=== PATIENT | female | born 1995 | race Two or more races ===

== ENCOUNTER 2020-12-14 12:07 | Emergency (ER) | payer SELFPAY ==
[2020-12-14] MEDS ORDERED: Sodium Chloride 0.9% 10 ML Syringe FLUSH PRN (12:22)
[2020-12-14] MEDS ORDERED: Sodium Chloride 0.9% 2.5 ML Syringe FLUSH PRN (12:22)
[2020-12-14] MEDS ORDERED: LORazepam 2 MG/ML SDV IVPUSH ONE (12:23)
--- NOTE | 2020-12-14 12:26 | EDM.PDOC ---
ED HPI GENERAL MEDICAL PROBLEM - General Chief Complaint: Respiratory Problem Stated Complaint: SOB Time Seen by Provider: 12/14/20 12:12 - History of Present Illness INITIAL COMMENTS - FREE TEXT/NARRATIVE: Otherwise well 24-year-old female presenting with palpitations and shortness of breath. Patient states that she noticed this when she woke up this morning around 11 AM. Her boyfriend left for work and she noted that she was having trouble breathing she thought she was just congested but it would not go away. She reports feeling shaky having shortness of breath and palpitations. She denies chest pain she says she has some degree of nausea all the time in the morning and this is there but no worsening nausea no abdominal pain no vomiting. No syncope or near syncope. Patient vapes but does not smoke cigarettes. She denies drug or alcohol use. No lower extremity pain or swelling no recent travels. - Related Data Allergies Allergy/AdvReac Type Severity Reaction Status Date / Time No Known Allergies Allergy Verified 12/14/20 12:13 Home Meds: Home Meds Omeprazole 20 mg PO DAILY 12/14/20 [History] Past Medical History - Past Health History Medical/Surgical History: Denies Medical/Surgical History Gastrointestinal History: Reports: GERD Social & Family History - Family History Cardiac: Reports: CAD Endocrine/Metabolic: Reports: Diabetes, Type I - Recreational Drug Use Recreational Drug Use: No ED ROS GENERAL - Review of Systems Review Of Systems: See Below Free Text/Narrative/Comment: General: No fever. Skin: No rash. Eyes: No vision problems. ENT: No sore throat. Neck: No neck stiffness. Respiratory: Per HPI Cardiac: No chest pain. Gastrointestinal: + nausea, no vomiting or abdominal pain. Urinary: No dysuria. Musculoskeletal: No myalgias/arthralgias. Neurologic: No headache. ED EXAM, GENERAL - Physical Exam Exam: See Below Free Text/Narrative:: General Appearance: No acute distress, appears comfortable Skin: No rash HEENT: Normocephalic/atraumatic, sclera anicteric, mucous membranes moist Neck: Normal range of motion Chest and Lungs: Bilateral breath sounds, clear to auscultation Cardiovascular: Minimally tachycardic rate and regular rhythm, no murmur Abdomen: Soft, non-tender Back: Normal Musculoskeletal: No edema or tenderness Neurologic: Awake, alert, no obvious deficits, moving all extremities Psychiatric: Appropriate, cooperative #1 Interpretation EKG Date: 12/14/20 Time: 12:25 EKG Interpretation Comments: Sinus tachycardia rate of 101 normal axis and intervals no acute ischemia QTC 485 Course - Vital Signs Last Recorded V/S: Last Vital Signs Temp 96.9 F 12/14/20 12:08 Pulse 93 12/14/20 13:17 Resp 16 12/14/20 13:17 BP 111/65 12/14/20 13:17 Pulse Ox 98 12/14/20 13:17 - Orders/Labs/Meds Orders: Active Orders 24 hr Category Date Time Status RT Post Treatment Assessment [RC] Click to Edit Care 12/14/20 13:16 Active RT Pre-Treatment Assessment [RC] Click to Edit Care 12/14/20 13:16 Active Sodium Chloride 0.9% [Saline Flush] Med 12/14/20 12:22 Active 10 ml FLUSH ASDIRECTED PRN Sodium Chloride 0.9% [Saline Flush] Med 12/14/20 12:22 Active 2.5 ml FLUSH ASDIRECTED PRN Saline Lock Insert [OM.PC] Stat Oth 12/14/20 12:22 Ordered Medication Orders Sodium Chloride (Sodium Chloride 0.9% 10 Ml Syringe) 10 ml FLUSH ASDIRECTED PRN PRN Reason: Keep Vein Open Last Admin: 12/14/20 12:46 Dose: 10 ml Documented by: SHERRILL Sodium Chloride (Sodium Chloride 0.9% 2.5 Ml Syringe) 2.5 ml FLUSH ASDIRECTED PRN PRN Reason: Keep Vein Open Last Admin: 12/14/20 12:46 Dose: 2.5 ml Documented by: SHERRILL Labs: Laboratory Tests 12/14/20 12/14/20 12/14/20 Range/Units 12:20 12:20 12:20 WBC 7.41 (4.0-11.0) K/uL RBC 4.89 (4.30-5.90) M/uL Hgb 14.6 (12.0-16.0) g/dL Hct 43.3 (36.0-46.0) % MCV 88.5 (80.0-98.0) fL MCH 29.9 (27.0-32.0) pg MCHC 33.7 (31.0-37.0) g/dL RDW Std Deviation 42.4 (28.0-62.0) fl RDW Coeff of Arnaldo 13 (11.0-15.0) % Plt Count 255 (150-400) K/uL MPV 10.30 (7.40-12.00) fL Neut % (Auto) 61.8 (48.0-80.0) % Lymph % (Auto) 29.4 (16.0-40.0) % [place] % (Auto) 6.6 (0.0-15.0) % Eos % (Auto) 1.9 (0.0-7.0) % Baso % (Auto) 0.3 (0.0-1.5) % Neut # (Auto) 4.6 (1.4-5.7) K/uL Lymph # (Auto) 2.2 (0.6-2.4) K/uL [place] # (Auto) 0.5 (0.0-0.8) K/uL Eos # (Auto) 0.1 (0.0-0.7) K/uL Baso # (Auto) 0.0 (0.0-0.1) K/uL Nucleated RBC % 0.0 /100WBC Nucleated RBCs # 0 K/uL D-Dimer, Quantitative 0.24 (0.0-0.50) mg/L FEU Sodium 139 (136-145) mmol/L Potassium 3.4 L (3.5-5.1) mmol/L Chloride 101 (98-107) mmol/L Carbon Dioxide 26.8 (21.0-32.0) mmol/L BUN 7 (7.0-18.0) mg/dL Creatinine 0.6 (0.6-1.0) mg/dL Est Cr Clr Drug Dosing 102.06 mL/min Estimated GFR (MDRD) > 60.0 ml/min Glucose 100 (74-106) mg/dL Calcium 8.3 L (8.5-10.1) mg/dL Total Bilirubin 0.4 (0.2-1.0) mg/dL AST 236 H (15-37) IU/L ALT 310 H (14-63) IU/L Alkaline Phosphatase 101 (46-116) U/L Troponin I < 0.050 (0.000-0.056) ng/mL Total Protein 7.5 (6.4-8.2) g/dL Albumin 3.6 (3.4-5.0) g/dL Globulin 3.9 (2.6-4.0) g/dL Albumin/Globulin Ratio 0.9 (0.9-1.6) Influenza Type A RNA (NEGATIVE) Influenza Type B RNA (NEGATIVE) SARS-CoV-2 RNA (ROXANN) (NEGATIVE) 12/14/20 Range/Units 13:15 WBC (4.0-11.0) K/uL RBC (4.30-5.90) M/uL Hgb (12.0-16.0) g/dL Hct (36.0-46.0) % MCV (80.0-98.0) fL MCH (27.0-32.0) pg MCHC (31.0-37.0) g/dL RDW Std Deviation (28.0-62.0) fl RDW Coeff of Arnaldo (11.0-15.0) % Plt Count (150-400) K/uL MPV (7.40-12.00) fL Neut % (Auto) (48.0-80.0) % Lymph % (Auto) (16.0-40.0) % [place] % (Auto) (0.0-15.0) % Eos % (Auto) (0.0-7.0) % Baso % (Auto) (0.0-1.5) % Neut # (Auto) (1.4-5.7) K/uL Lymph # (Auto) (0.6-2.4) K/uL [place] # (Auto) (0.0-0.8) K/uL Eos # (Auto) (0.0-0.7) K/uL Baso # (Auto) (0.0-0.1) K/uL Nucleated RBC % /100WBC Nucleated RBCs # K/uL D-Dimer, Quantitative (0.0-0.50) mg/L FEU Sodium (136-145) mmol/L Potassium (3.5-5.1) mmol/L Chloride (98-107) mmol/L Carbon Dioxide (21.0-32.0) mmol/L BUN (7.0-18.0) mg/dL Creatinine (0.6-1.0) mg/dL Est Cr Clr Drug Dosing mL/min Estimated GFR (MDRD) ml/min Glucose (74-106) mg/dL Calcium (8.5-10.1) mg/dL Total Bilirubin (0.2-1.0) mg/dL AST (15-37) IU/L ALT (14-63) IU/L Alkaline Phosphatase (46-116) U/L Troponin I (0.000-0.056) ng/mL Total Protein (6.4-8.2) g/dL Albumin (3.4-5.0) g/dL Globulin (2.6-4.0) g/dL Albumin/Globulin Ratio (0.9-1.6) Influenza Type A RNA NEGATIVE (NEGATIVE) Influenza Type B RNA NEGATIVE (NEGATIVE) SARS-CoV-2 RNA (ROXANN) NEGATIVE (NEGATIVE) Meds: Medications Generic Name Dose Route Start Last Admin Trade Name Liban PRN Reason Stop Dose Admin Sodium Chloride 10 ml 12/14/20 12:22 12/14/20 12:46 Sodium Chloride 0.9% 10 Ml Syringe FLUSH 10 ml ASDIRECTED PRN Administration Keep Vein Open Sodium Chloride 2.5 ml 12/14/20 12:22 12/14/20 12:46 Sodium Chloride 0.9% 2.5 Ml Syringe FLUSH 2.5 ml ASDIRECTED PRN Administration Keep Vein Open Discontinued Medications Generic Name Dose Route Start Last Admin Trade Name Liban PRN Reason Stop Dose Admin Albuterol Confirm 12/14/20 13:11 12/14/20 13:14 Albuterol 8 Gm Inhaler Administered 12/14/20 13:12 Not Given Dose 8 gm INH .STK-MED ONE Albuterol 8 gm 12/14/20 13:16 12/14/20 13:17 Albuterol Hfa 18 Gm Inhaler INH 12/14/20 13:17 2 inhalation ONETIME ONE Administration Lorazepam 1 mg 12/14/20 12:23 12/14/20 12:46 Lorazepam 2 Mg/Ml Sdv IVPUSH 12/14/20 12:24 1 mg ONETIME ONE Administration Departure - Departure Time of Disposition: 14:19 Disposition: Home, Self-Care 01 Condition: Good Clinical Impression: Bronchitis - Discharge Information *PRESCRIPTION DRUG MONITORING PROGRAM REVIEWED*: Not Applicable *COPY OF PRESCRIPTION DRUG MONITORING REPORT IN PATIENT AMANDA: Not Applicable Instructions: Acute Bronchitis, Adult Referrals: PCP,None [Primary Care Provider] - Forms: ED Department Discharge Additional Instructions: Please take 2 puffs from the albuterol inhaler every 4-6 hours for the next few days. You should feel your symptoms gradually improved. If you have worsening trouble breathing or severe chest pain please return to the ER. Otherwise please follow-up with one of the primary care clinics. [facility] [address] [place] [address] [facility] [address] [place] [address] The following information is given to patients seen in the emergency department who are being discharged to home. This information is to outline your options for follow-up care. We provide all patients seen in our emergency department with a follow-up referral. The need for follow-up, as well as the timing and circumstances, are variable depending upon the specifics of your emergency department visit. If you don't have a primary care physician on staff, we will provide you with a referral. We always advise you to contact your personal physician following an emergency department visit to inform them of the circumstance of the visit and for follow-up with them and/or the need for any referrals to a consulting specialist. The emergency department will also refer you to a specialist when appropriate. This referral assures that you have the opportunity for follow-up care with a specialist. All of these measure are taken in an effort to provide you with optimal care, which includes your follow-up. Under all circumstances we always encourage you to contact your private physician who remains a resource for coordinating your care. When calling for follow-up care, please make the office aware that this follow-up is from your recent emergency room visit. If for any reason you are refused follow-up, please contact the [facility] Emergency Department at and asked to speak to the emergency department charge nurse. Sepsis Event Note (ED) - Evaluation Sepsis Screening Result: No Definite Risk - Focused Exam Vital Signs: Vital Signs Temp Pulse Resp BP Pulse Ox 12/14/20 13:17 93 16 111/65 98 12/14/20 12:08 96.9 F 98 18 130/94 H 98 - My Orders Last 24 Hours: My Active Orders 12/14/20 12:22 Sodium Chloride 0.9% [Saline Flush] 10 ml FLUSH ASDIRECTED PRN Sodium Chloride 0.9% [Saline Flush] 2.5 ml FLUSH ASDIRECTED PRN Saline Lock Insert [OM.PC] Stat 12/14/20 13:16 RT Post Treatment Assessment [RC] Click to Edit RT Pre-Treatment Assessment [RC] Click to Edit - Assessment/Plan Last 24 Hours: My Active Orders 12/14/20 12:22 Sodium Chloride 0.9% [Saline Flush] 10 ml FLUSH ASDIRECTED PRN Sodium Chloride 0.9% [Saline Flush] 2.5 ml FLUSH ASDIRECTED PRN Saline Lock Insert [OM.PC] Stat 12/14/20 13:16 RT Post Treatment Assessment [RC] Click to Edit RT Pre-Treatment Assessment [RC] Click to Edit Assessment:: 24-year-old female presenting with palpitations and shortness of breath. Lungs are clear minimal tachycardia hypoxia no pleuritic chest pain D-dimer sent given tachycardia. Lungs are clear but pneumonia considered and x-ray pending. Very low concern for ACS no findings of pericarditis. Single troponin should be sufficient. Patient's heart score is low. Anxiety possible or certainly would be a diagnosis of exclusion while we await initial results 1 mg of IV Ativan will be given. 1420: Patient's labs are normal. Covid is negative chest x-ray with potential viral pneumonia or reactive airway disease. Patient given 2 puffs of an albuterol inhaler with some symptom improvement. Given this patient discharged with albuterol inhaler and instructions to take 2 puffs every 4-6 hours. Patient will follow up with primary care. Return precautions discussed and understood.
[2020-12-14 12:49] LABS: BLOOD UREA NITROGEN,BUN 7 mg/dL (7.0-18.0); CARBON DIOXIDE,CO2 26.8 mmol/L (21.0-32.0); CHLORIDE,CL 101 mmol/L (98-107); GLUCOSE RANDOM 100 mg/dL (74-106); POTASSIUM,K 3.4 mmol/L (3.5-5.1); SODIUM,NA 139 mmol/L (136-145)
--- NOTE | 2020-12-14 12:50 | CR ---
INDICATION: Dyspnea. TECHNIQUE: Two views. FINDINGS: Heart size mildly enlarged. Pulmonary vascularity appears normal. A subtle diffuse reticular interstitial prominence in both lungs more pronounced for the bases. Query reactive airways disease or mild viral pneumonia. Interstitial edema felt less likely. Dictated by Royce Whiteside MD @ Dec 14 2020 12:47PM Signed by Dr. Royce Whiteside @ Dec 14 2020 12:49PM
[2020-12-14] MEDS ORDERED: Albuterol 8 GM Inhaler INH ONE (13:11)
[2020-12-14] MEDS ORDERED: Albuterol HFA 18 Gm Inhaler INH ONE (13:16)
[2020-12-14 14:03] LABS: CORONAVIRUS COVID-19 NAA NEGATIVE (NEGATIVE); INFLUENZA A NAA NEGATIVE (NEGATIVE); INFLUENZA B NAA NEGATIVE (NEGATIVE)
== END 2020-12-14 14:34 | disposition home or self-care (01) ==
LOC: MW.ED 12:07
DX: J40 Bronchitis, not specified as acute or chronic (principal); R00.0 Tachycardia, unspecified; K21.9 Gastro-esophageal reflux disease without esophagitis; Z79.899 Other long term (current) drug therapy; Z20.822 Contact with and (suspected) exposure to COVID-19
CPT/HCPCS: 0240U; 36415; 71046; 80053; 84484; 85025; 85379; 93005; 96374; 99285; A9270; J2060; 99283; J3535-GY

== ENCOUNTER 2021-03-15 17:26 | Emergency (ER) | payer MEDICAID ==
[2021-03-15] MEDS ORDERED: Ondansetron 4 MG/2 ML SDV IVPUSH ONE (18:39)
[2021-03-15] MEDS ORDERED: Sodium Chloride 0.9% 1,000 ML IV ONE (18:39)
--- NOTE | 2021-03-15 18:47 | EDM.PDOC ---
ED HPI GENERAL MEDICAL PROBLEM - General Chief Complaint: Gastrointestinal Problem Stated Complaint: possible alcohol poisioning Time Seen by Provider: 03/15/21 17:32 Source of Information: Reports: Patient History Limitations: Reports: No Limitations - History of Present Illness INITIAL COMMENTS - FREE TEXT/NARRATIVE: HISTORY AND PHYSICAL: History of present illness: Patient is a 25-year-old female who presents emergency room today with concern of nausea, vomiting, and loose stools following a night of heavy drinking. Patient states that she went out drinking last night and drink an excessive amount and states that she was pretty drunk last night. Patient is when she woke up this morning, she has been consistently vomiting with loose stools and feels nauseous so came to the emergency room for further evaluation. Patient denies any head injury or loss of consciousness or any other resuscitative symptoms. Patient states that she has not been drinking today. Patient states that she does drink tequila and beer daily and states that she has not been drinking today. Patient states that she has never had withdrawal symptoms from stopping. Patient states that not too long ago she stopped for 3 days and had no symptoms. Patient denies fever, chills, chest pain, shortness of breath, or cough. Denies headache, neck stiff ness, change in vision, syncope, or near syncope. Denies nausea, vomiting, abdominal pain, diarrhea, constipation, or dysuria. Has not noted any blood in urine or stool. Patient has been eating and drinking appropriately. Review of systems: As per history of present illness and below otherwise all systems reviewed and negative. Past medical history: As per history of present illness and as reviewed below otherwise noncontributory. Surgical history: As per history of present illness and as reviewed below otherwise noncontributory. Social history: See social history for further information Family history: As per history of present illness and as reviewed below otherwise noncontributory. Physical exam: General: Patient is alert, oriented, and in no acute distress. Patient sitting comfortably on exam table. Vitals stable and reviewed by me. HEENT: Atraumatic, normocephalic, pupils equal and reactive bilaterally, negative for conjunctival pallor or scleral icterus, mucous membranes moist, TMs normal bilaterally, throat clear, neck supple, nontender, trachea midline. No drooling or trismus noted. No meningeal signs. No hot potato voice noted. Lungs: Clear to auscultation, breath sounds equal bilaterally, chest nontender. Heart: S1S2, regular rate and rhythm without overt murmur Abdomen: Soft, nondistended, nontender. Negative for masses or hepatosplenomegaly. Negative for costovertebral tenderness. Pelvis: Stable nontender. Genitourinary: Deferred. Rectal: Deferred. Skin: Intact, warm, dry. No lesions or rashes noted. Extremities: Atraumatic, negative for cords or calf pain. Neurovascular unremarkable. Neuro: Awake, alert, oriented. Cranial nerves II through XII unremarkable. Cerebellum unremarkable. Motor and sensory unremarkable throughout. Exam nonfocal. Notes: Patient is a 25-year-old female, with a history of chronic alcohol use, who presents emergency room today with concern of nausea and vomiting after a night of heavy drinking. Upon arrival to the ED, patient is vitally stable and well-a ppearing on exam. Will obtain fluid bolus as well as basic lab work. Mild derangements of CBC unremarkable. CMP noted to have an elevated AST at 621, increased from (236 on 12/14/2020) and ALT at 529 (increased from 310 on 12/14/2020). Bilirubin and alk phos within normal limits. Lipase within normal limits. hCG negative. Urinalysis shows 30 protein, positive nitrate, positive leukocyte Estrace with 3-6 red blood cells, 2-4 white blood cells and 3+ bacteria. Interpretation acute cystitis. INR within normal limits at 1.11. Acetaminophen less than 2. Pending hepatitis panel which is a send out lab. Upon reevaluation of patient, she has not had any episodes of vomiting and remains vitally stable and comfortable throughout stay in ED. Will place patient on Keflex and provide a dose of Zofran. Encourage patient to work on decreasing her alcohol intake. Also discussed with patient the importance to have her liver function testing followed up with her primary care provider. Signs and symptoms that were prompt return to the ED thoroughly discussed with patient. Discussed importance for follow-up with a primary care provider. Voices understanding and is agreeable to plan of care. Denies any further questions or concerns at this time. Diagnostics: CBC, CMP, UA, serum hCG, lipase, PT/INR, acetaminophen, hepatitis panel Therapeutics: Saline, Zofran, Toradol Prescription: Zofran, Keflex Impression: Nausea and vomiting Transaminitis Urinary tract infection Chronic alcohol use Plan: 1. Encourage you to decrease your alcohol intake as discussed. 2. Take medication as prescribed. Encourage small but frequent sips of fluid to prevent dehydration. 3. Follow-up with a primary care provider as discussed and for the need to follow-up on liver function testing today. Return to the ED as needed and as discussed. Definitive disposition and diagnosis as appropriate pending reevaluation and review of above. - Related Data Allergies Allergy/AdvReac Type Severity Reaction Status Date / Time No Known Allergies Allergy Verified 03/15/21 18:31 Home Meds: Home Meds Omeprazole 20 mg PO DAILY 12/14/20 [History] Past Medical History - Past Health History Medical/Surgical History: Denies Medical/Surgical History HEENT History: Reports: None Cardiovascular History: Reports: None Respiratory History: Reports: None Gastrointestinal History: Reports: GERD Genitourinary History: Reports: None ORE TESTER History: Reports: None Musculoskeletal History: Reports: None Neurological History: Reports: None Psychiatric History: Reports: None Endocrine/Metabolic History: Reports: None Hematologic History: Reports: None Immunologic History: Reports: None Oncologic (Cancer) History: Reports: None Dermatologic History: Reports: None - Infectious Disease History Infectious Disease History: Reports: None - Past Surgical History Head Surgeries/Procedures: Reports: None Social & Family History - Family History Family Medical History: No Pertinent Family History Cardiac: Reports: CAD Endocrine/Metabolic: Reports: Diabetes, Type I - Tobacco Use Tobacco Use Status *Q: Current Every Day Tobacco User Years of Tobacco use: 1 Packs/Tins Daily: 0.2 - Caffeine Use Caffeine Use: Reports: None - Alcohol Use Days Per Week of Alcohol Use: 2 Number of Drinks Per Day: 4 Total Drinks Per Week: 8 - Recreational Drug Use Recreational Drug Use: No ED ROS GENERAL - Review of Systems Review Of Systems: Comprehensive ROS is negative, except as noted in HPI. ED EXAM, GENERAL - Physical Exam Exam: See Below (see dictation) Course - Vital Signs Last Recorded V/S: Last Vital Signs Temp 98.2 F 03/15/21 19:37 Pulse 68 03/15/21 21:01 Resp 18 03/15/21 21:01 BP 110/78 03/15/21 21:01 Pulse Ox 97 03/15/21 21:01 - Orders/Labs/Meds Orders: Active Orders 24 hr Category Date Time Status CULTURE URINE [MREF] Stat Lab 03/15/21 19:28 Received HEPATITIS PANEL (4) [REF] Stat Lab 03/15/21 20:10 Received Labs: Laboratory Tests 03/15/21 03/15/21 03/15/21 Range/Units 18:35 19:07 19:07 WBC 9.08 (4.0-11.0) K/uL RBC 4.92 (4.30-5.90) M/uL Hgb 14.1 (12.0-16.0) g/dL Hct 42.2 (36.0-46.0) % MCV 85.8 (80.0-98.0) fL MCH 28.7 (27.0-32.0) pg MCHC 33.4 (31.0-37.0) g/dL RDW Std Deviation 43.5 (28.0-62.0) fl RDW Coeff of Arnaldo 14 (11.0-15.0) % Plt Count 232 (150-400) K/uL MPV 10.60 (7.40-12.00) fL Neut % (Auto) 82.0 H (48.0-80.0) % Lymph % (Auto) 11.9 L (16.0-40.0) % [place] % (Auto) 5.0 (0.0-15.0) % Eos % (Auto) 0.8 (0.0-7.0) % Baso % (Auto) 0.3 (0.0-1.5) % Neut # (Auto) 7.5 H (1.4-5.7) K/uL Lymph # (Auto) 1.1 (0.6-2.4) K/uL [place] # (Auto) 0.5 (0.0-0.8) K/uL Eos # (Auto) 0.1 (0.0-0.7) K/uL Baso # (Auto) 0.0 (0.0-0.1) K/uL INR Sodium 138 (136-145) mmol/L Potassium 3.6 (3.5-5.1) mmol/L Chloride 104 (98-107) mmol/L Carbon Dioxide 24.4 (21.0-32.0) mmol/L BUN 6 L (7.0-18.0) mg/dL Creatinine 0.6 (0.6-1.0) mg/dL Est Cr Clr Drug Dosing 101.16 mL/min Estimated GFR (MDRD) > 60.0 ml/min Glucose 104 (74-106) mg/dL Calcium 8.4 L (8.5-10.1) mg/dL Total Bilirubin 0.9 (0.2-1.0) mg/dL AST 621 H (15-37) IU/L ALT 529 H (14-63) IU/L Alkaline Phosphatase 100 (46-116) U/L Total Protein 7.6 (6.4-8.2) g/dL Albumin 3.6 (3.4-5.0) g/dL Globulin 4.0 (2.6-4.0) g/dL Albumin/Globulin Ratio 0.9 (0.9-1.6) Lipase 127 (73-393) U/L HCG, Qual NEGATIVE (NEG) Urine Color Urine Appearance Urine pH (5.0-8.0) Ur Specific Mclean (1.001-1.035) Urine Protein (NEGATIVE) mg/dL Urine Glucose (UA) (NEGATIVE) mg/dL Urine Ketones (NEGATIVE) mg/dL Urine Occult Blood (NEGATIVE) Urine Nitrite (NEGATIVE) Urine Bilirubin (NEGATIVE) Urine Ictotest Urine Urobilinogen (<2.0) EU/dL Ur Leukocyte Esterase (NEGATIVE) Urine RBC (0-2/HPF) Urine WBC (0-5/HPF) Ur Epithelial Cells (NONE-FEW) Amorphous Sediment (NEGATIVE) Urine Bacteria (NEGATIVE) Urine Mucus (NONE-MOD) Acetaminophen ug/mL 03/15/21 03/15/21 03/15/21 Range/Units 19:07 19:28 20:10 WBC (4.0-11.0) K/uL RBC (4.30-5.90) M/uL Hgb (12.0-16.0) g/dL Hct (36.0-46.0) % MCV (80.0-98.0) fL MCH (27.0-32.0) pg MCHC (31.0-37.0) g/dL RDW Std Deviation (28.0-62.0) fl RDW Coeff of Arnaldo (11.0-15.0) % Plt Count (150-400) K/uL MPV (7.40-12.00) fL Neut % (Auto) (48.0-80.0) % Lymph % (Auto) (16.0-40.0) % [place] % (Auto) (0.0-15.0) % Eos % (Auto) (0.0-7.0) % Baso % (Auto) (0.0-1.5) % Neut # (Auto) (1.4-5.7) K/uL Lymph # (Auto) (0.6-2.4) K/uL [place] # (Auto) (0.0-0.8) K/uL Eos # (Auto) (0.0-0.7) K/uL Baso # (Auto) (0.0-0.1) K/uL INR 1.11 Sodium (136-145) mmol/L Potassium (3.5-5.1) mmol/L Chloride (98-107) mmol/L Carbon Dioxide (21.0-32.0) mmol/L BUN (7.0-18.0) mg/dL Creatinine (0.6-1.0) mg/dL Est Cr Clr Drug Dosing mL/min Estimated GFR (MDRD) ml/min Glucose (74-106) mg/dL Calcium (8.5-10.1) mg/dL Total Bilirubin (0.2-1.0) mg/dL AST (15-37) IU/L ALT (14-63) IU/L Alkaline Phosphatase (46-116) U/L Total Protein (6.4-8.2) g/dL Albumin (3.4-5.0) g/dL Globulin (2.6-4.0) g/dL Albumin/Globulin Ratio (0.9-1.6) Lipase (73-393) U/L HCG, Qual (NEG) Urine Color YELLOW Urine Appearance SLT CLOUDY Urine pH 6.0 (5.0-8.0) Ur Specific [place] 1.025 (1.001-1.035) Urine Protein 30 H (NEGATIVE) mg/dL Urine Glucose (UA) NEGATIVE (NEGATIVE) mg/dL Urine Ketones NEGATIVE (NEGATIVE) mg/dL Urine Occult Blood LARGE H (NEGATIVE) Urine Nitrite POSITIVE H (NEGATIVE) Urine Bilirubin SMALL H (NEGATIVE) Urine Ictotest NEGATIVE Urine Urobilinogen 0.2 (<2.0) EU/dL Ur Leukocyte Esterase TRACE H (NEGATIVE) Urine RBC 3-6 (0-2/HPF) Urine WBC 2-4 (0-5/HPF) Ur Epithelial Cells FEW (NONE-FEW) Amorphous Sediment HEAVY (NEGATIVE) Urine Bacteria 3+ H (NEGATIVE) Urine Mucus LIGHT (NONE-MOD) Acetaminophen <2.0 ug/mL Meds: Medications Discontinued Medications Generic Name Dose Route Start Last Admin Trade Name Liban PRN Reason Stop Dose Admin Sodium Chloride 1,000 mls @ 999 mls/hr 03/15/21 18:39 03/15/21 18:45 Normal Saline IV 03/15/21 19:39 999 mls/hr BOLUS ONE Administration Sodium Chloride 500 mls @ 999 mls/hr 03/15/21 19:00 03/15/21 19:37 Normal Saline IV 999 mls/hr STAT ALAYNA Administration Ketorolac Tromethamine 30 mg 03/15/21 19:58 03/15/21 20:20 Ketorolac 30 Mg/Ml Sdv IVPUSH 03/15/21 19:59 30 mg ONETIME ONE Administration Ondansetron HCl 4 mg 03/15/21 18:39 03/15/21 18:45 Ondansetron 4 Mg/2 Ml Sdv IVPUSH 03/15/21 18:40 4 mg ONETIME ONE Administration Departure - Departure Time of Disposition: 20:37 Disposition: Home, Self-Care 01 Clinical Impression: Transaminitis, Chronic alcohol use Nausea and vomiting Qualifiers: Vomiting type: unspecified Vomiting Intractability: non-intractable Qualified Code(s): R11.2 - Nausea with vomiting, unspecified Urinary tract infection Qualifiers: Urinary tract infection type: acute cystitis Hematuria presence: with hematuria Qualified Code(s): N30.01 - Acute cystitis with hematuria - Discharge Information Referrals: PCP,None [Primary Care Provider] - Forms: ED Department Discharge Additional Instructions: The following information is given to patients seen in the emergency department who are being discharged to home. This information is to outline your options for follow-up care. We provide all patients seen in our emergency department with a follow-up referral. The need for follow-up, as well as the timing and circumstances, are variable depending upon the specifics of your emergency department visit. If you don't have a primary care physician on staff, we will provide you with a referral. We always advise you to contact your personal physician following an emergency department visit to inform them of the circumstance of the visit and for follow-up with them and/or the need for any referrals to a consulting specialist. The emergency department will also refer you to a specialist when appropriate. This referral assures that you have the opportunity for follow-up care with a specialist. All of these measure are taken in an effort to provide you with optimal care, which includes your follow-up. Under all circumstances we always encourage you to contact your private physician who remains a resource for coordinating your care. When calling for follow-up care, please make the office aware that this follow-up is from your recent emergency room visit. If for any reason you are refused follow-up, please contact the [facility] Emergency Department at and asked to speak to the emergency department charge nurse. [facility] [address] [place] [id number] [facility] [address] [place] [id number] 1. Encourage you to decrease your alcohol intake as discussed. 2. Take medication as prescribed. Encourage small but frequent sips of fluid to prevent dehydration. 3. Follow-up with a primary care provider as discussed and for the need to follow-up on liver function testing today. Return to the ED as needed and as discussed. Sepsis Event Note (ED) - Evaluation Sepsis Screening Result: No Definite Risk - Focused Exam Vital Signs: Vital Signs Temp Pulse Resp BP Pulse Ox 03/15/21 21:01 68 18 110/78 97 03/15/21 19:37 98.2 F 74 18 101/48 L 98 03/15/21 18:28 97.2 F 84 18 101/62 98 - My Orders Last 24 Hours: My Active Orders 03/15/21 19:28 CULTURE URINE [MREF] Stat 03/15/21 20:10 HEPATITIS PANEL (4) [REF] Stat - Assessment/Plan Last 24 Hours: My Active Orders 03/15/21 19:28 CULTURE URINE [MREF] Stat 03/15/21 20:10 HEPATITIS PANEL (4) [REF] Stat
[2021-03-15] MEDS ORDERED: Sodium Chloride 0.9% 500 ML IV SCH (19:00)
[2021-03-15 19:42] LABS: BLOOD UREA NITROGEN,BUN 6 mg/dL (7.0-18.0); CARBON DIOXIDE,CO2 24.4 mmol/L (21.0-32.0); CHLORIDE,CL 104 mmol/L (98-107); GLUCOSE RANDOM 104 mg/dL (74-106); LIPASE 127 U/L (73-393); POTASSIUM,K 3.6 mmol/L (3.5-5.1); SODIUM,NA 138 mmol/L (136-145)
[2021-03-15] MEDS ORDERED: Ketorolac 30 MG/ML SDV IVPUSH ONE (19:58)
== END 2021-03-15 21:07 | disposition home or self-care (01) ==
LOC: MW.ED 17:26
DX: N30.01 Acute cystitis with hematuria (principal); R11.2 Nausea with vomiting, unspecified; R74.01 Elevation of levels of liver transaminase levels; K21.9 Gastro-esophageal reflux disease without esophagitis; Z72.89 Other problems related to lifestyle; Z72.0 Tobacco use; Z79.899 Other long term (current) drug therapy
CPT/HCPCS: 36415; 80053; 80074; 80143; 81001; 83690; 84703; 85025; 85610; 87086; 96374; 96375; 99284; J1885; J2405; J7030; J7040; 99283

== ENCOUNTER 2021-09-11 01:50 | Emergency (ER) | payer OTHER ==
[2021-09-11] MEDS ORDERED: Cephalexin 500 MG Cap PO ONE (03:23)
--- NOTE | 2021-09-11 03:25 | EDM.PDOC ---
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 Patient states that approximately for the last 2 weeks she has been experiencing vaginal bleeding. She describes it as light soaking through approximately 1 pad per day. She states that she just was on control. She states that she might be . She states that typically she has very scheduled periods and this is abnormal for her. She denies any pain, vaginal discharge, dysuria or concern for STDs. She states that she does have some mild low back pain. She states that the bleeding has decreased however she came to the emergency department because she has had continued bleeding. She states that she has not seen a doctor or solar electric installer in quite some time and her last Pap smear approximately 5 years ago was normal. She did not receive the HPV vaccine. She denies any other symptoms REVIEW OF SYSTEMS: Constitutional: Denies fever, chills. Cardiovascular: Denies chest pain Respiratory: Denies shortness of breath Gastrointestinal: Denies Nausea, vomiting, diarrhea, hematochezia. Genitourinary: Positive for vaginal bleeding. Denies hematuria, vaginal discharge Skin:Denies a rash MSK: Denies joint pain PAST MEDICAL HISTORY: As per history of present illness and as reviewed below otherwise noncontributory. SURGICAL HISTORY: As per history of present illness and as reviewed below otherwise noncontributory. LMP: Currently on her period SOCIAL HISTORY: As per history of present illness and as reviewed below otherwise noncontributory. FAMILY HISTORY: As per history of present illness and as reviewed below otherwise noncontributory. EXAMINATION OF ORGAN SYSTEMS/BODY AREAS: Constitutional: Blood pressure is 113/70, heart rate 106, respiratory rate 20 with an oxygen saturation 95% on room air. Temperature 36.4 General: Young woman who does not appear to be in acute distress Psychiatric: Appropriate mood and affect. Eyes: No scleral icterus or conjunctival erythema ENMT: Moist mucous membranes. No pharyngeal erythema Cardiovascular: Regular, rate, and rhythm. No gallops, murmurs, or rubs. Bilateral upper extremity pulses symmetric and intact. No peripheral edema. No JVD. Respiratory: Lungs clear to auscultation bilaterally. No wheezes, rales, or rhonchi. Gastrointestinal: Soft, non-tender, non-distended. Normoactive bowel sounds Genitourinary: No suprapubic tenderness pelvic examination performed with RN religion instructor in presence. Patient has normal female external genitalia. No lesions or abrasions. On speculum examination there is a small amount of blood in the posterior vaginal vault. Cervix appears mildly erythematous but no active bleeding. Otherwise no abnormality. No masses. No cervical motion tenderness. Musculoskeletal: Normal range of motion. Skin: No lesions or abrasions. Neurological: Alert, GCS 15 MEDICAL DECISION MAKING AND COURSE IN THE ED WITH INTERPRETATION/REVIEW OF DIAGNOSTIC STUDIES: This is a 25-year-old woman without any significant past medical history who comes to the emergency department with abnormal uterine bleeding with some cervical irritation otherwise no abnormality. At this time we will obtain a urinalysis and a hCG. I did discuss that the patient would likely need to follow-up with gynecology for further management. She was amenable to this plan. DDx: Dysfunctional uterine bleeding, urinary tract infection Laboratory: Urinalysis reveals trace leukocyte esterase with 5-10 WBCs and few bacteria. Interpretation: Positive. hCG is negative After labs I did discuss results with the patient. At this time I did provide the patient with Keflex. I did send a prescription for Keflex. She is to return for any new or worsening symptoms and follow-up with gynecology. She was amenable discharge and had no further questions DISPOSITION: The patient was discharged home in stable condition. The patient will follow up with gynecology in 3 to 5 days CONDITION: Fair PROCEDURES: None FINAL IMPRESSION(S)/DIAGNOSES: 1. Acute urinary tract infection. 2. Acute dysfunctional uterine bleeding Robbie Balbuena M.D. 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 Musculoskeletal History: Reports: None Neurological History: Reports: None Psychiatric History: Reports: None Endocrine/Metabolic History: Reports: None Hematologic History: Reports: None Immunologic History: Reports: None Oncologic (Cancer) History: Reports: None Dermatologic History: Reports: None - Infectious Disease History Infectious Disease History: Reports: None - Past Surgical History Head Surgeries/Procedures: Reports: None Social & Family History - Family History Family Medical History: No Pertinent Family History Cardiac: Reports: CAD Endocrine/Metabolic: Reports: Diabetes, Type I - Tobacco Use Second Hand Smoke Exposure: No - Caffeine Use Caffeine Use: Reports: None - Recreational Drug Use Recreational Drug Use: No ED ROS GENERAL - Review of Systems Review Of Systems: See Below ED EXAM, GENERAL - Physical Exam Exam: See Below Course - Vital Signs Last Recorded V/S: Last Vital Signs Temp 36.4 C 09/11/21 02:05 Pulse 102 H 09/11/21 03:35 Resp 18 09/11/21 03:35 BP 110/71 09/11/21 03:35 Pulse Ox 97 09/11/21 03:35 - Orders/Labs/Meds Labs: Laboratory Tests 09/11/21 09/11/21 Range/Units 02:30 02:30 Urine Color RED Urine Appearance CLOUDY Urine pH 6.0 (5.0-8.0) Ur Specific [place] >= 1.030 (1.001-1.035) Urine Protein 100 H (NEGATIVE) mg/dL Urine Glucose (UA) NEGATIVE (NEGATIVE) mg/dL Urine Ketones 40 H (NEGATIVE) mg/dL Urine Occult Blood LARGE H (NEGATIVE) Urine Nitrite NEGATIVE (NEGATIVE) Urine Bilirubin SMALL H (NEGATIVE) Urine Urobilinogen 1.0 (<2.0) EU/dL Ur Leukocyte Esterase TRACE H (NEGATIVE) Urine RBC TOO NUMEROUS TO CT H (0-2/HPF) Urine WBC 5-10 (0-5/HPF) Ur Epithelial Cells FEW (NONE-FEW) Urine Bacteria FEW (NEGATIVE) Urine HCG, Qual NEGATIVE (NEGATIVE) Meds: Medications Discontinued Medications Generic Name Dose Route Start Last Admin Trade Name Freq PRN Reason Stop Dose Admin Cephalexin 500 mg 09/11/21 03:23 09/11/21 03:31 Cephalexin 500 Mg Cap PO 09/11/21 03:24 500 mg ONETIME ONE Administration Departure - Departure Time of Disposition: 03:25 Disposition: Home, Self-Care 01 Condition: Fair Clinical Impression: UTI (urinary tract infection), Vaginal bleeding - Discharge Information *PRESCRIPTION DRUG MONITORING PROGRAM REVIEWED*: No *COPY OF PRESCRIPTION DRUG MONITORING REPORT IN PATIENT AMANDA: No Prescriptions: cephALEXin [Cephalexin] 500 mg PO BID #5 capsule Instructions: Urinary Tract Infection, Adult, [id number], Abnormal Uterine Bleeding, [id number] Referrals: PCP,None [Primary Care Provider] - Forms: ED Department Discharge Additional Instructions: Your evaluated today on an emergent basis. At this time your urinalysis did show that you have a urinary tract infection. I did provide you with a prescription for antibiotics. Please pick this up at the pharmacy that we discussed. In addition I do recommend that you follow-up with gynecology within 3 to 5 days for reevaluation and further work-up. Is important that she get a Pap smear as your cervix did look irritated. Given that you have not had a Pap smear in 5 years I recommend that you go in for a repeat Pap smear. If you have any worsening bleeding as discussed I would like you to return to the emergency department. [facility] [address] [place] [id number] [facility] [address] [place] [address] The patient is informed of any results of their evaluation and diagnostic workup and all questions are answered. They are given discharge instructions and return precautions. The patient is stable for discharge. The patient states they understand and agree with the plan and that they will return if their symptoms get worse or if they have any new concerns. The following information is given to patients seen in the emergency department who are being discharged to home. This information is to outline your options for follow-up care. We provide all patients seen in our emergency department with a follow-up referral. The need for follow-up, as well as the timing and circumstances, are variable depending upon the specifics of your emergency department visit. If you don't have a primary care physician on staff, we will provide you with a referral. We always advise you to contact your personal physician following an emergency department visit to inform them of the circumstance of the visit and for follow-up with them and/or the need for any referrals to a consulting specialist. The emergency department will also refer you to a specialist when appropriate. This referral assures that you have the opportunity for follow-up care with a specialist. All of these measure are taken in an effort to provide you with optimal care, which includes your follow-up. Under all circumstances we always encourage you to contact your private physician who remains a resource for coordinating your care. When calling for follow-up care, please make the office aware that this follow-up is from your recent emergency room visit. If for any reason you are refused follow-up, please contact the [facility] Emergency Department at and asked to speak to the emergency department charge nurse. Sepsis Event Note (ED) - Evaluation Sepsis Screening Result: No Definite Risk
== END 2021-09-11 03:35 | disposition home or self-care (01) ==
LOC: MW.ED 01:50
DX: N39.0 Urinary tract infection, site not specified (principal); N93.8 Other specified abnormal uterine and vaginal bleeding; K21.9 Gastro-esophageal reflux disease without esophagitis; Z79.899 Other long term (current) drug therapy
CPT/HCPCS: 81001; 81025; 87086; 99284; A9270